=== PATIENT | male | born 1970 | race Caucasian/White ===

== ENCOUNTER 2024-08-19 13:54 | Emergency (ER) | payer OTHER, SELFPAY ==
[2024-08-19 13:55] VITALS: BP 127/91; PULSE 70; RESP 18; TEMP 36.6; O2SAT 98; BMI 31.4
--- NOTE | 2024-08-19 15:05 | EX.ED.DYSGE1 ---
HPI History of Present Illness Chief Complaint: General Illness Narrative Narrative: 54-year-old male who denies significant past medical history presents with right ear pain that has had for the last few days. He states that he thinks he has had a sinus infection and a right ear infection that went untreated. However, he denies any fevers or chills. No loss of hearing. He states that over the last day or 2 he has been nauseated, dizzy, and sometimes when he looks at his phone he is having double vision. His main concern is that he has had increasing right ear pain. He went to urgent care and they told him that because of the double vision that he needed to come to the emergency department for evaluation. He was concerned because they told him that it could be a brain tumor or stroke. No exacerbating or alleviating factors. No hematemesis. PFSH PFSH Home Medications ?Medication ?Instructions ?Recorded ?Last Taken ?Type budesonide 32 mcg/actuation nasal 1 spray intranasal DAILY 7 days 08/19/24 Unknown Rx spray #8.43 mL meclizine 25 mg tablet 25 mg PO 4X/DAY PRN PRN Dizziness 08/19/24 Unknown Rx #20 tabs Allergy/AdvReac Type Severity Reaction Status Date / Time Sulfa (Sulfonamide Allergy Unknown Verified 08/19/24 13:55 Antibiotics) Social History Smoking Status: Never smoker ROS ROS ED ROS Narrative Review of systems positive for dizziness stated with nausea and vomiting. Positive right ear pain. No loss of hearing. No fevers or chills. No exacerbating or alleviating factors. EXAM Physical Exam Narrative Exam Narrative: Afebrile. Vital signs noted. Nontoxic-appearing. Cardiovascular examination feels a regular rate and rhythm. Lungs are clear to auscultation bilaterally. Abdomen is soft nontender with positive bowel sounds. HEENT examination reveals fluid behind the right TM but no erythema. Canal is nonswollen. No mastoid tenderness bilaterally. Left TM appears clear without fluid behind it, no evidence of mastoiditis. Neck soft and supple without meningismus. Neurological examination is nonfocal and nonlateralizing. Const Vital Signs: 08/19/24 13:55 Temperature 97.8 F Temperature Source Oral Pulse Rate 70 Respiratory Rate 18 Blood Pressure 127/91 H Blood Pressure Mean 103 Pulse Ox 98 Oxygen Delivery Method Room Air MDM MDM MDM Narrative Medical decision making narrative: Differential diagnosis includes but not limited to otitis media versus serous otitis versus benign positional vertigo versus labyrinthitis. I see no signs of a stroke, and I do not feel that stroke team is indicated, nor do I feel that he needs emergent CT imaging of the brain. I discussion with the patient that I do not feel antibiotics are indicated because I think this is more of a serous otitis. I offered him nasal steroids, but he was reluctant to take them and preferred pills. However, I do not feel that a burst of steroids systemically would be beneficial for his otitis media that serous. He was also given meclizine prescription as I do feel that his otitis media Luis at noninfective may be causing his labyrinthitis or vertigo but is associated with nausea and vomiting. His abdomen is nontender so I do not feel that he needs laboratory work or CT imaging of the abdomen. He was referred to otolaryngology and he also also referred to a primary care provider. I feel he can be discharged to follow-up. Return instructions reviewed. Disposition is discharged home in stable condition. History & Record Review Discussion w/independent historian: Patient Discharge Plan Triage Chief Complaint: General Illness ED Provider: Blake Neal Dx/Rx/DC Orders Clinical Impression: Serous otitis media, Vertigo Instructions: ED Earache Without Infection (Adult), ED Vertigo, Unspecified Prescriptions: New budesonide 32 mcg/actuation spray,non-aerosol 1 spray intranasal DAILY 7 Days Qty: 8.43 0RF Rx Instructions: administer into each nostril meclizine 25 mg tablet 25 mg PO 4X/DAY PRN PRN (Reason: Dizziness) Qty: 20 0RF Referrals: Preet Ruff MD [Med Staff - Active Staff] - 1 Week if not improving Uriel Beltrán MD [Med Staff - Active Staff] - 3-5 Days if not improving Activity Restrictions/Additional Instructions: Use the nasal steroid as directed. You can also take an [id number] decongestant. Follow-up with otolaryngology if no improvement in a week. Return to the emergency department with new or worsening symptoms. Print Language: [place] Disposition Disposition: Home, Self Care
== END 2024-08-19 15:18 | disposition home or self-care (01) ==
LOC: ED 15:14
PROVIDERS: Emergency Provider Emergency Medicine; Visit Provider Emergency Medicine
DX: H65.91 Unspecified nonsuppurative otitis media, right ear (principal); R42 Dizziness and giddiness
CPT/HCPCS: 99282